=== PATIENT | male | born 2000 | race African-American/Black ===

== ENCOUNTER 2021-02-08 17:20 | Emergency (ER) | payer OTHER ==
[~2021-02-08] VITALS: Ht 175.3 cm; Wt 73.0 kg
[2021-02-08] MEDS ORDERED: KETOROLAC 30MG/ML VIAL IV STA (20:36)
[2021-02-08] MEDS ORDERED: ONDANSETRON HCL 4MG/2ML INJ IV STA (20:36)
[2021-02-08] MEDS ORDERED: MAGNESIUM/ALUMINUM HYDROXIDE/SIMETHICONE 30ML UDC PO STA (20:36)
[2021-02-08] MEDS ORDERED: SODIUM CHLORIDE 0.9% 1,000 ML IV ONE ×2 (20:45)
[2021-02-08] MEDS ORDERED: FAMOTIDINE 20MG/2ML VIAL IV ONE (20:45)
[2021-02-08 20:47] VITALS: BP 115/80
[2021-02-08 20:56] LABS: HEMOGLOBIN. 13.6 g/dL (14.0-18.0); MEAN CORPUSCULAR HEMOGLOBIN 33.2 pg (28.0-32.0); MEAN CORPUSCULAR VOLUME 94.8 fL (80.0-94.0); RED BLOOD CELL COUNT 4.11 mill/uL (4.7-6.1); RED CELL DISTRIBUTION WIDTH 12.3 % (11.6-14.6)
[2021-02-08 22:16] LABS: CHLORIDE 109 mEq/L (98-107)
[2021-02-08 22:49] LABS: PLATELET ESTIMATE NORMAL
[2021-02-08 22:50] LABS: MEAN PLATELET VOLUME 8.8 fl (7.4-10.4); PLATELET 207 x1000/uL (130-400)
== END 2021-02-08 23:55 | disposition home or self-care (01) ==
LOC: ER 17:20
DX: F12.129 Cannabis abuse with intoxication, unspecified (principal); R42 Dizziness and giddiness
CPT/HCPCS: 36415; 80048; 85025; 96361; 96374; 96375; 99284; J1885; J2405; J3490; J7030